=== PATIENT | female | born 1995 | race Caucasian/White ===

== ENCOUNTER 2021-09-28 19:54 | Emergency (ER) | payer MEDICAID ==
[~2021-09-28] VITALS: Ht 157.5 cm; Wt 64.0 kg
[2021-09-28] MEDS ORDERED: ACETAMINOPHEN 325MG TABLET PO NR (20:30)
[2021-09-28] MEDS ORDERED: ALBUTEROL 6.7GM HFA INHALER ORI NR (20:30)
[2021-09-28] MEDS ORDERED: P20 MT (22:14)
[2021-09-28] MEDS ORDERED: ACET-2708 MT (22:14)
[2021-09-28] MEDS ORDERED: ALBU6.7H9 INH (22:14)
[2021-09-28] MEDS ORDERED: PREDNISONE 20MG TABLET PO NR (22:15)
[2021-09-28 23:15] VITALS: BP 132/78
== END 2021-09-28 23:25 | disposition home or self-care (01) ==
LOC: ER 19:54
DX: B34.9 Viral infection, unspecified (principal); R05.9 Cough, unspecified; R06.02 Shortness of breath; Z20.822 Contact with and (suspected) exposure to COVID-19
CPT/HCPCS: 71045; 81025; 87426; 87804; 99284; J7512